=== PATIENT | male | born 1950 | race Caucasian/White ===

== ENCOUNTER → 2017-01-23 | Outpatient (CLI) | payer OTHER ==
[~2017-01-23] VITALS: Ht 170.2 cm; Wt 124.5 kg
[~2017-01-23] MED LIST: CZR50 PO; DIPH25TA23 PO
[2017-01-23 13:33] VITALS: BP 128/84; PULSE 74; Ht 170.2 cm; Wt 124.5 kg
== END | disposition home or self-care (01) ==
LOC: C.NEUR 13:16
PROVIDERS: ATTEND Physician Assistant Medical
DX: G47.33 Obstructive sleep apnea (adult) (pediatric) (principal); E66.01 Morbid (severe) obesity due to excess calories

== ENCOUNTER 2021-09-07 05:11 | Observation (INO) ==
--- NOTE | 2021-08-10 15:33 | PAT Medication Instructions ---
Medication Instructions Date of Service August 10, 2021 Home Medications Medication Instructions Recorded CPAP Machine #1 ea 10/20/20 cholecalciferol (vitamin D3) 50 mcg (2,000 unit) tablet (Vitamin D3) 50 mcg PO Q2D losartan 50 mg tablet (Cozaar) 50 mg PO QAM turmeric root extract 500 mg capsule (Curcuplex-95) 500 mg PO QAM vitamin B complex 1 tab PO Q2D STOP taking 2 weeks before surgery (or as soon as possible if surgery is within 2 weeks) turmeric root extract 500 mg capsule (Curcuplex-95) 500 mg PO QAM DO NOT take the morning of surgery cholecalciferol (vitamin D3) 50 mcg (2,000 unit) tablet (Vitamin D3) 50 mcg PO Q2D losartan 50 mg tablet (Cozaar) 50 mg PO QAM vitamin B complex 1 tab PO Q2D Other Notes If you have any questions please call us at [phone] or [phone] or [phone] or [phone]
--- NOTE | 2021-08-12 08:53 | Anesthesiology Consultation ---
Date of Service August 12, 2021 Assessment & Plan (1) Encounter for pre-operative examination: COVID screening: Per assessment on 08/12: No known COVID-19 positive contacts or current COVID-19 related symptoms. Travel screen negative. Patient vaccinated. Surgeon arranging preop COVID testing. Awaiting results. Chart Review Chart Review: Acceptable Risk for Surgery and Patient seen in Pre Admission Testing Teaching & Discussion Pre-Anesthesia Teaching/Discussion Notes: Instructed NPO after midnight before surgery,except medications with 15 cc of water. Medication instructions provided according to the PAT guidelines. History Surgery Operation Date: 09/07/21 10:10 Proposed Procedures p Right Total Knee Arthroplasty - Yossi Neumann MD Height/Weight Height: 5 ft 7 in Weight: 129 kg Allergies Allergy/AdvReac Type Severity Reaction Status Date / Time codeine AdvReac Intermediate Headache Unverified 08/10/21 12:14 Medications Home Medications Medication Instructions Recorded Confirmed Last Taken CPAP Machine #1 ea 10/20/20 Unknown cholecalciferol (vitamin D3) 50 50 mcg PO Q2D 08/10/21 08/10/21 Unknown mcg (2,000 unit) tablet (Vitamin D3) losartan 50 mg tablet (Cozaar) 50 mg PO QAM 08/10/21 08/10/21 Unknown turmeric root extract 500 mg 500 mg PO QAM 08/10/21 08/10/21 Unknown capsule (Curcuplex-95) vitamin B complex 1 tab PO Q2D 08/10/21 08/10/21 Unknown Past Medical History Medical History Gout Hx of gastroesophageal reflux (GERD) Controlled Hypertension IBS (irritable bowel syndrome) Morbid obesity Nocturnal hypoxemia Severe obstructive sleep apnea CPAP (only needed when laying flat per pt) Exercise / Class Metabolic Activity II 4-5 Yardwork/Stairs/Walk up hill Past Family History Family History Other No family history of adverse response to anesthesia Obstructive sleep apnea Past Surgical History Surgical History H/O removal of cyst "fatty tumor" from the back of the head History of colonoscopy History of esophagogastroduodenoscopy (EGD) S/P anal fissurectomy acute lateral sphincterotomy S/P tonsillectomy Past Anesthesia History No Hx of Anesthesia Complications and No Family Hx of Anesthesia Complications History of PONV No Hx of PONV and Hx of Motion Sickness (+ boats) Social History Smoking Status: Former smoker tobacco type: cigarettes Do You Dip or Chew Tobacco: No Smoking End Date: Quit 1975 Hx Alcohol Use: Yes alcohol intake frequency: holidays/special occasions only Hx Substance Use: No substance use type: does not use Review of Systems Chronic cough r/t allergies x several years, unchanged. Patient denies chest pain, shortness of breath, dyspnea on exertion, fever, chills, wheezing, palpitations. Physical Exam Vital Signs VITALS BP 133/81 P 68 TEMP 97.9 SP02 95%RA RESP 16 PHYSICAL Full cervical extension range of motion. Full TMJ range of motion. TMD 3 finger breaths Mallampati Score 3 Dentition: intact, several implants (left upper molar post- awaiting implant) Lungs: clear throughout to auscultation Cardiac: regular rate and rhythm, no murmurs noted Spine: normal Carotid arteries: negative bruit Extremities: no edema Short martinez Lab Results Anesthesia Preop Results Results Anesthesia Widget: WBC 6.03 K/uL (4.8-10.8) 08/12/21 Hgb 14.1 g/dL (14.0-18.0) 08/12/21 Hct 41.5 % (42-52) L 08/12/21 Plt 164 K/uL (130-400) 08/12/21 Na 136 mmol/L (136-145) 08/12/21 K 3.9 mmol/L (3.5-5.1) 08/12/21 Cl 104 mmol/L (98-107) 08/12/21 CO2 26 mmol/L (21-32) 08/12/21 BUN 14 mg/dl (6-23) 08/12/21 Creat 0.85 mg/dl (0.6-1.4) 08/12/21 Glucose Level 130 mg/dl (70-99(Fasting)) H 08/12/21 PT 11.0 Seconds (9.0-12.0) 08/12/21 PTT 26.6 Seconds (21.0-31.0) 08/12/21 INR 1.0 (0.9-1.1) 08/12/21 HA1c 6.8 % (4.5-5.6) H 08/12/21 Urine Color Yellow 08/12/21 Urine Appearance Clear (Clear) 08/12/21 Urine pH 5.0 (4.5-7.5) 08/12/21 Urine Specific [place] 1.018 (1.000-1.030) 08/12/21 Urine Protein Negative (Negative) 08/12/21 Urine Glucose (UA) Negative (Negative) 08/12/21 Urine Ketones Negative (Negative) 08/12/21 Urine Blood Negative (Negative) 08/12/21 Urine Nitrite Negative (Negative) 08/12/21 Urine Bilirubin Negative (Negative) 08/12/21 Urine Urobilinogen Negative (Negative) 08/12/21 Urine Leukocyte Esterase Negative (Negative) 08/12/21 Blood Type A Positive 08/12/21 Antibody Screen NEGATIVE 08/12/21 Testing Electrocardiogram Date: 08/12/21 Findings: + NSR @ (64) Chest X-Ray Date: 08/12/21 FINDINGS: PA and lateral chest radiographs are compared to study dated 06/16/2009. The heart is top normal for projection. There are scattered calcified granulomas. The lungs and pleural spaces are otherwise clear. There is no pneumothorax. The skeletal structures appear osteopenic. The bony thorax appears intact. Mild degenerative changes noted in the thoracic spine. IMPRESSION: No active disease in the chest.
--- NOTE | 2021-09-06 12:27 | History & Physical Report ---
Date of Service September 06, 2021 Assessment & Plan (1) Primary osteoarthritis of right knee: Plan: Treatment options discussed with the patient. He would like to proceed with surgical intervention. Risks, benefits and alternatives to surgery including but not limited to infection, DVT, pain, stiffness, need for revision surgery, damage to blood vessels, damage to nerves, PE, , were discussed with the patient and they wish to proceed. Plan for right total knee arthroplasty scheduled for [facility] on September [address] Neumann. We will plan on Xarelto postop for DVT prophylaxis. Plan on home health versus outpatient PT postop. All questions answered. Patient will follow-up postop. History of Present Illness Chief Complaint: Right knee pain Primary Care Provider: Pancho Christopher DO 71-year-old male with past medical history significant for hypertension, MARCELLUS, irritable bowel presents with ongoing right knee pain. Patient has failed conservative measures including injections of cortisone and hyaluronic acid, anti-inflammatories. Pain is interfering with daily activities. Patient would like to proceed with surgical intervention. Patient denies headaches, sweats, fevers, chills, double vision, blurred vision, cough, sore throat, dysphagia, chest pain, sob, wheezing, n/v/d/c, numbness, tingling, fatigue, urinary symptoms, mood disorders. ROS positive for right knee pain and stiffness. Allergies Allergy/AdvReac Type Severity Reaction Status Date / Time codeine AdvReac Intermediate Headache Unverified 08/10/21 12:14 Home Medications Medication Instructions Recorded Confirmed Type CPAP Machine #1 ea 10/20/20 Rx cholecalciferol (vitamin D3) 50 50 mcg PO Q2D 08/10/21 08/10/21 History mcg (2,000 unit) tablet (Vitamin D3) losartan 50 mg tablet (Cozaar) 50 mg PO QAM 08/10/21 08/10/21 History turmeric root extract 500 mg 500 mg PO QAM 08/10/21 08/10/21 History capsule (Curcuplex-95) vitamin B complex 1 tab PO Q2D 08/10/21 08/10/21 History Past Med/Surg History Medical History Gout Hx of gastroesophageal reflux (GERD) Controlled Hypertension IBS (irritable bowel syndrome) Morbid obesity Nocturnal hypoxemia Severe obstructive sleep apnea CPAP (only needed when laying flat per pt) Surgical History H/O removal of cyst "fatty tumor" from the back of the head History of colonoscopy History of esophagogastroduodenoscopy (EGD) S/P anal fissurectomy acute lateral sphincterotomy S/P tonsillectomy Family History Other No family history of adverse response to anesthesia Obstructive sleep apnea Social History Smoking Status: Former smoker Tobacco Type: Cigarettes Second Hand Exposure: No; Hx Alcohol Use: Yes Hx Substance Use: No Preferred Language: Trinidadian Communication Ability: Effective Marketing Services Rep Required: No Beliefs That Will Affect Care: None marital status: Current Living Situation: Spouse current occupational status: retired Feels Safe at Home: Yes Assistive Devices: Cane, CPAP and Glasses Review of Systems All systems reviewed & are unremarkable except as noted in HPI & below Physical Exam Constitutional: well developed and well nourished; no acute distress Eyes: PERRL, conjunctivae normal, anicteric sclerae ENMT: external ear and nose normal, oropharynx normal Neck: trachea midline, no thyromegaly Respiratory: normal respiratory effort, lungs clear to auscultation Cardiovascular: RRR, no murmur, no edema Musculoskeletal: Right knee: Varus alignment with mild effusion, tenderness medial joint line. Mild crepitation. Range of motion is 0 to 125 degrees. Stable to valgus and varus stress test. Skin: no rashes, warm and dry Neurologic: patellar DTR's 2+ bilat, sensation intact Psychiatric: A+Ox3, euthymic affect Results & Data ([facility]) Diagnostic Findings Right knee radiographs demonstrate tricompartmental degenerative changes with [id number] medial compartment. There is periarticular osteophyte formation.
[2021-09-07] MEDS ORDERED: ROPIVACAINE 0.5% HCL/PF 150 MG, BUPIVACAINE 0.75% MPF 20 ML, EPINEPHrine 30MG/30ML (OR ... INSTIL SCH (06:00)
[2021-09-07] MEDS ORDERED: METOCLOPRAMIDE HCL 10 MG TABLET PO SCH (06:00)
[2021-09-07] MEDS ORDERED: LR 500ML BOLUS, THEN 15ML/HR IV SCH (06:00)
[2021-09-07] MEDS ORDERED: TRANEXAMIC ACID 1,000 MG **IV Intra-op IV SCH (06:00)
[2021-09-07] MEDS ORDERED: CeleBREX 200 MG CAP PO SCH (06:00)
[2021-09-07] MEDS ORDERED: GABAPENTIN 300 MG CAP PO SCH (06:00)
[2021-09-07] MEDS ORDERED: ACETAMINOPHEN 500 MG TAB PO SCH (06:00)
[2021-09-07] MEDS ORDERED: dexAMETHasone 4 MG TAB PO SCH (06:00)
[2021-09-07] MEDS ORDERED: FAMOTIDINE 20 MG TAB PO SCH (06:00)
[2021-09-07] MEDS ORDERED: TRANEXAMIC ACID 1,000 MG **IV Pre-op IV SCH (06:00)
[2021-09-07] MEDS ORDERED: VANCOMYCIN HCL 2,000 MG in SODIUM CHLORIDE 0.9% 500 ML IV SCH (06:00)
[2021-09-07] MEDS ORDERED: ROPIVACAINE 0.5% 5 MG/ML 30 ML VIAL ONE (06:14)
[2021-09-07] MEDS ORDERED: EPINEPHrine INJ 1 MG/ML AMP ONE (06:14)
[2021-09-07] MEDS ORDERED: BUPIVACAINE 0.5 % 5 MG/1 ML PF 10ML VIAL ONE (06:14)
[2021-09-07] MEDS ORDERED: fentaNYL citrate 100 MCG/2 ML VIAL ONE (06:55)
[2021-09-07] MEDS ORDERED: MIDAZOLAM HCL 1 MG/ML 2ML VIAL ONE (06:55)
[2021-09-07] MEDS ORDERED: ORTHO JOINT ANESTHETIC ONE (07:01)
[2021-09-07] MEDS ORDERED: ePHEDrine sulfate 50 MG/ML AMP IV PRN (07:07)
[2021-09-07] MEDS ORDERED: fentaNYL citrate 100 MCG/2 ML VIAL IV PRN (07:07)
[2021-09-07] MEDS ORDERED: LABETALOL HCL IV 5 MG/ML 20ML IV PRN (07:07)
[2021-09-07] MEDS ORDERED: PHENYLEPHRINE 100MCG/ML 5ML SYR IV PRN (07:07)
[2021-09-07] MEDS ORDERED: ONDANSETRON INJ 2 MG/ML 2 ML VIAL IV PRN ×2 (07:07→12:00)
[2021-09-07] MEDS ORDERED: ATROPINE SULFATE 0.1 MG/ML 10ML SYR IV PRN (07:07)
[2021-09-07] MEDS ORDERED: HYDROmorphone INJ 1 MG/ML SYRINGE IV PRN (07:07)
--- NOTE | 2021-09-07 07:12 | History & Physical Bridge Note ---
Date of Service September 07, 2021 History & Physical Bridge Note I have examined the patient, reviewed the History & Physical and in the interval since the performance of the History & Physical I have noted the following changes of clinical significance: no changes noted
[2021-09-07] MEDS ORDERED: PROPOFOL IV EMULSION 10 MG/ML 20 ML VIAL IV ONE ×3 (08:12→09:55)
[2021-09-07] MEDS ORDERED: LIDOCAINE 2% 2 ML VIAL/AMP(20MG/ML) INFIL ONE (08:12)
[2021-09-07] MEDS ORDERED: ePHEDrine sulfate 50 MG/ML AMP ONE (09:55)
--- NOTE | 2021-09-07 10:37 | Post Operative Brief Note ---
Immediate Post Op Note v1 Date of Surgery September 07, 2021 Pre & Post Diagnosis Operation Date: 09/07/21 07:15 Pre-Op Diagnosis: Right Knee Osteoarthritis, morbid obesity BMI 44 Post-Op Diagnosis: Right Knee Osteoarthritis, morbid obesity BMI 44 I identified the patient and participated in the time-out.: Yes Procedure Operation Date: 09/07/21 07:15 Actual Procedures p Right Total Knee Arthroplasty(Right), lateral release, application superficial wound VAC, increased difficulty morbid obesity BMI 44.0- Yossi Neumann MD Surgeon Yossi Neumann MD Package Designer Tre MERA Estimated Blood Loss 20 Findings Consistent with Post-Op Diagnosis Specimens Bone cuts Drains Hemovac Drain Anesthesia Type MAC Spinal Regional Complications none Disposition Disposition: Recovery Room Overlapping Procedure I was immediately available: during the entire case.
--- NOTE | 2021-09-07 10:54 | Operative Report ---
Post Operative Report Pre & Post Diagnosis Operation Date: 09/07/21 07:15 Pre-Op Diagnosis: Right Knee Osteoarthritis, morbid obesity BMI 44 Post-Op Diagnosis: Right Knee Osteoarthritis, morbid obesity BMI 44 I identified the patient and participated in the time-out.: Yes Procedure Operation Date: 09/07/21 07:15 Actual Procedures p Right Total Knee Arthroplasty(Right), lateral release, application superficial wound VAC, increased difficulty more obesity BMI 44- Yossi Neumann MD Surgeon Yossi Neumann MD Finger Waver Tre MERA Estimated Blood Loss 20 Findings Consistent with Post-Op Diagnosis Specimens Bone cuts Drains 2 Hemovac Anesthesia Type MAC Spinal Regional Complications none Disposition Accompanied Patient To Recovery: No Disposition: Recovery Room Indications 71-year-old male with chronic right knee pain failed conservative management. X-rays demonstrate he has a varus knee with [id number] medial compartment [id number] in medial compartment with weightbearing films. Description of Procedure Patient was taken to the operating room placed supine on the operating table and anesthetized under spinal MAC regional block anesthesia. Exam under anesthesia demonstrated obese leg mainly upper thigh into the knee area with hips that tended to abduct causing both legs externally rotate and 0 through 120 degrees range of motion with no instability and a varus tibia. Patient had obesity in his abdominal area as well.. A pneumatic tourniquet was placed about the obese upper thigh of the right lower extremity. The right lower extremity was prepped and draped in usual sterile fashion. The leg was elevated exsanguinated with an Esmarch bandage and the pneumatic tourniquet was raised to 350 mm mercury. An anterior incision was made across the right knee. The skin was incised longitudinally subcutaneous flaps were elevated and an incision was made through the medial retinaculum extending up into the mid third of the quadriceps tendon and extended down to the medial tibial tubercle. Intra-articular findings demonstrated some tricompartmental osteoarthritic changes mainly medial compartment with [id number] medial compartment with some eburnation.. The knee was exposed by excising the infrapatellar fat pad, excising the medial and lateral meniscus and anterior cruciate ligament. Any inflamed synovial tissue was resected. The fat pad over the anterior femur was resected for placement of the component in that area. The lateral synovial bands were released. The femur was exposed. The custom femoral cutting block was pinned in position. It appeared that we were not going to make any bone cut across the lateral femoral condyle due to a hypoplastic lateral femoral condyle. My concern was that the cutting guide was not going to give us an appropriate cut so we abandon the femoral cutting guide and went to conventional instrumentation. Intramedullary drill hole was made into the femoral canal and a guide bret was placed and we set the distal femoral cutting guide at a standard cut and set the angle at 6 degree valgus cut to obtain more of a cut on the lateral femoral condyle so we will get support for the implant. The distal femoral cut was made with the oscillating saw. The femoral sizing guide was placed and pinned in position and the size 10 was appropriate sized as was predicted by the preoperative templating. Drill holes were made in 3 degrees of external rotation to match epicondylar axis. The size 10, 4-in-1 cutting block was placed. The anterior and posterior chamfer cuts were made. The knee was extended and a subperiosteal peel lateral release was performed around the patella. The patella width was measured and w idth was reproduced using freehand cut technique. The 35 millimeter symmetrical patella was used. 3 drill holes are made for the pegs. The tibia was exposed. A custom tibial cutting block was positioned and drill holes were made for the cutting guide. Cutting guide was placed and the proximal cut was made with the oscillating saw. All osteophytes were resected. The lamina zoology teacher was used to assess ligamentous balance and the ligaments were balanced in extension and flexion. The tibia was reexposed and measured for a size G tibial component. This was externally rotated in line with the tibial tubercle and the fixation pins were drilled. The proximal tibia was fashioned with the drill and punch. The size 10 right CR femoral trial was inserted. The trial MC inserts were used. The 10 mm insert gave balanced ligaments through full range of motion. The patella tracked with some slight lateral patellar tilt so I did a formal lateral release leaving the synovium intact and patella tracked centrally. the trials were removed. The orthomix anesthetic cocktail was injected per protocol. The knee was then copiously irrigated with pulsatile lavage saline solution. The final components were cemented with Refobacin bone cement. The final components were persona 10 standard CR right femoral component, G tibial component, 10mm MC right polyethylene and a 35 symmetrical patella. After the cement cured with the knee in full extension the Betadine soak was used per protocol. The knee joint was copiously irrigated with pulsatile lavage saline solution . 2 drains were brought out laterally and connected to a Hemovac. The quadriceps tendon and medial retinaculum were closed with interrupted [id number] #1 Vicryl sutures. The knee was taken through a full range of m otion and repair was secure. The subcutaneous tissues were closed with 2-0 Vicryl sutures and skin was closed with neela. Patrick and Acticoat superficial wound VAC was applied and the patient tolerated the procedure well. Was increased difficulty with exposure during the procedure related to morbid obesity as well as increased difficulty positioning and applying the tourniquet which added 30 minutes of the procedure time. Tre MERA my physician operating room assistant, participated as advertising sales assistant and was integral part in all aspects of the procedure. He assisted in soft tissue retraction, instrument management ,leg positioning, the closure, application superficial wound VAC and will participate in the postoperative care of the patient. I attest to the content of the Intraoperative Record and any orders documented therein. Any exceptions are noted below.
--- NOTE | 2021-09-07 11:45 | XRay Report ---
TWO VIEWS RIGHT KNEE CLINICAL HISTORY: Postoperative examination. FINDINGS: AP and crosstable lateral portable views of the right knee are obtained. A right knee arthr oplasty is in near anatomic alignment. There has been undersurface remodeling of the patella. No acut e fracture is seen. There are expected postoperative changes around the knee including skin clips, a surgical drain, soft tissue edema, and subcutaneous gas. IMPRESSION: Expected postoperative changes status post right knee arthroplasty. No acute fracture is seen. ACT 112: Negative or not required by law. Electronically signed by: Uche Calabrese M.D. 09/07/2021 11:43 AM
--- NOTE | 2021-09-07 11:55 | Anesthesiology Progress Note ---
Date of Service September 07, 2021 Anesthesia Post Procedure Vital Signs Vital Signs: Temp Pulse Pulse Resp BP Pulse Ox O2 Del Method 09/07/21 11:45 36.9 C 85 12 112/69 94 Nasal Cannula 09/07/21 11:30 82 12 105/55 L 97 Nasal Cannula 09/07/21 11:20 36.6 C 80 12 119/64 94 Nasal Cannula 09/07/21 11:10 86 15 127/70 94 Oxymask 09/07/21 11:00 84 18 127/64 95 Oxymask 09/07/21 10:50 84 17 126/67 95 Oxymask 09/07/21 10:42 37.0 C 91 H 15 123/66 95 Oxymask 09/07/21 05:52 36.7 C 73 20 155/86 H 98 Room Air O2 Flow Rate 09/07/21 11:45 2.5 09/07/21 11:30 2.5 09/07/21 11:20 2.5 09/07/21 11:10 2 09/07/21 11:00 4 09/07/21 10:50 6 09/07/21 10:42 8 09/07/21 05:52 Pain Intensity Right Knee: Pain Intensity: 4 Transfer of Care Handoff Completed per policy Notes Mental Status: alert / awake / arousable Patient Amnestic to Procedure: Yes Nausea / Vomiting: adequately controlled Pain: adequately controlled Airway Patency, RR, SpO2: stable & adequate BP & HR: stable & adequate Hydration State: stable & adequate Neuraxial Anesthesia: was administered and sensory block is resolving Anesthetic Complications: no major complications apparent and Pt Satisfied with anesthetic care
[2021-09-07] MEDS ORDERED: CHOLECALCIFEROL 1,000 UNITS 25 MCG TAB PO SCH (12:00)
[2021-09-07] MEDS ORDERED: HYDROmorphone INJ 0.5 MG/0.5 ML SYR IV PRN (12:00)
[2021-09-07] MEDS ORDERED: METOCLOPRAMIDE HCL INJ 5 MG/ML 2 ML VIAL IV PRN (12:00)
[2021-09-07] MEDS ORDERED: TAMSULOSIN HCL 0.4 MG CAP PO PRN (12:00)
[2021-09-07] MEDS ORDERED: bisacodyL 10 MG SUPP PR PRN (12:00)
[2021-09-07] MEDS ORDERED: oxyCODONE HCL IR 5 MG TAB (IMMEDIATE RELEASE) PO PRN (12:00)
[2021-09-07] MEDS ORDERED: NALOXONE HCL 0.4 MG/1 ML VIAL/CARP IV PRN (12:00)
[2021-09-07] MEDS ORDERED: MAGNESIUM HYDROXIDE SUSP 30 ML UDC PO PRN (12:00)
[2021-09-07] MEDS: SODIUM CHLORIDE 0.9% 1000ML 1,000 ML IV SCH ×2 (12:25→21:16)
[2021-09-07] MEDS ORDERED: VITAMIN B COMPLEX TAB PO SCH (12:30)
--- NOTE | 2021-09-07 12:59 | Consultation ---
Date of Consultation September 07, 2021 Assessment & Plan (1) Status post total knee replacement, right: Post op day# 0 S/P Right TKA by Dr Neumann EBL#20ml -pain management per ortho -wound management per ortho -PT/OT as appropriate -DVT prophylaxis per ortho -incentive spirometry -monitor H&H for acute blood loss anemia; pre-op Hgb: 14 (2) Hypertension: Stable -Continue losartan (3) Severe obstructive sleep apnea: -CPAP HS (4) Obesity: BMI: 44 -Lifestyle modifications recommended DVT Prophylaxis -SCDs Disposition per primary service Follows with Dr Morris for routine care Pt was seen and care coordinated with Dr Engel. See addendum Thank you for this consultation. We will follow the patient with you during their hospital stay. You can reach a member of the [facility] Hospitalist Team 18/09 via [facility] Supervising Physician Co-Signing Physician Notes Patient was seen and examined independently at bedside. Chart reviewed. Case discussed with Marbella TRUONG and agree with the documentation above. In summary, this is a 71 year old male with morbid obesity with right knee OA who underwent right TKA today. Hospitalist service was consulted for post op medical management. Family at bedside. Denies any pain. Tolerated diet without issues. Passed gas. Has not voided yet. No chest pain or shortness of breath, no N/V. Brought CPAP from home. Vitals stable, AAOx3, chest clear, heart sounds normal, abd benign, right knee covered with dressing, icepack and with hemovac suction in place. TKA management per surgical team. Resume losartan likely from tomorrow if BP stable. Continue CPAP hs. Check labs in am. Rest per note above. History of Present Illness Requesting Physician: Dr Neumann Reason for Consultation: Post op medical management Attending Physician: Yossi Neumann MD History of Present Illness Patient is 71 y/o M with PMH HTN, GERD, MARCELLUS, obesity seen in medical consultation s/p right TKA today by Dr Neumann. Post op patient reports no pain currently. Right lower extremity still with numbness. Ate lunch without difficulty. Denies nausea or vomiting. Last BM yesterday. Had mild diff use TORRES post op that has resolved since he drank cup of coffee. Denies fever/chills, diaphoresis, dizziness, syncope, vision changes, neck pain, CP, SOB, orthopnea, palpitations, cough, sore throat, choking, otalgia, rhinorrhea, abdominal pain, weakness, extremity edema, rashes, urinary symptoms. Allergies Allergy/AdvReac Type Severity Reaction Status Date / Time codeine AdvReac Intermediate Headache Verified 09/07/21 05:46 Home Medications Medication Instructions Recorded Confirmed Type CPAP Machine #1 ea 10/20/20 Rx cholecalciferol (vitamin D3) 50 50 mcg PO Q2D 08/10/21 09/07/21 History mcg (2,000 unit) tablet (Vitamin D3) losartan 50 mg tablet (Cozaar) 50 mg PO QAM 08/10/21 09/07/21 History turmeric root extract 500 mg 500 mg PO QAM 08/10/21 09/07/21 History capsule (Curcuplex-95) vitamin B complex 1 tab PO Q2D 08/10/21 09/07/21 History Patient History Medical History Gout Hx of gastroesophageal reflux (GERD) Controlled Hypertension IBS (irritable bowel syndrome) Morbid obesity Nocturnal hypoxemia Severe obstructive sleep apnea CPAP (only needed when laying flat per pt) Surgical History (Updated 09/07/21 @ 13:28 by Marbella Donald PA-C) H/O removal of cyst "fatty tumor" from the back of the head History of colonoscopy History of esophagogastroduodenoscopy (EGD) S/P anal fissurectomy acute lateral sphincterotomy S/P tonsillectomy Status post total knee replacement, right 09/07/21. Dr Neumann Family History Other No family history of adverse response to anesthesia Obstructive sleep apnea Social History Smoking Status: Former smoker Tobacco Type: Cigarettes Smoking End Date: Quit 1975; Second Hand Exposure: No; Do You Dip or Chew Tobacco: No; Tobacco Cessation Education Requested by Patient: No Hx Alcohol Use: Yes Hx Substance Use: No Preferred Language: Monegasque Communication Ability: Effective Campus Recruiting Coordinator Required: No Beliefs That Will Affect Care: None marital status: Current Living Situation: Spouse current occupational status: retired Other Information That Helps Us Care for You: No Feels Safe at Home: Yes Safety Concerns: Feels Safe At This Time Assistive Devices: Cane, CPAP and Glasses Assistive Devices Comment: cane for stairs & dental implants x3 (right upper, left upper & left lower) Review of Systems Review of Systems: All systems reviewed & are unremarkable except as noted in HPI & below Physical Exam Physical Exam: General: no distress, obese Head: normocephalic, atraumatic Eyes: conjunctiva non-injected, anicteric ENT: normal inspection external ears, nose, mucous membranes moist Neck: supple, trachea midline Lungs: clear, no respiratory distress, no wheezing/rhonchi/rales CV: RRR, no murmur, no pretibial edema Abd: protuberant, normal BS, soft, non-tender Ext: no cyanosis, no calf tenderness; RLE, +LAKE wrap, surgical dressing in place and is dry. +hemovac in place with small amount serosanguineous drainage Neuro: A&O x 3, no focal deficits noted, normal affect Skin: warm, dry Results & Data ([facility]) Vital Signs (Past 12 Hours) Vital Signs Temp Pulse Pulse Resp BP Pulse Ox O2 Del Method 09/07/21 12:17 36.4 C L 88 17 104/61 97 Room Air 09/07/21 11:45 36.9 C 85 12 112/69 94 Nasal Cannula 09/07/21 11:30 82 12 105/55 L 97 Nasal Cannula 09/07/21 11:20 36.6 C 80 12 119/64 94 Nasal Cannula 09/07/21 11:10 86 15 127/70 94 Oxymask 09/07/21 11:00 84 18 127/64 95 Oxymask 09/07/21 10:50 84 17 126/67 95 Oxymask 09/07/21 10:42 37.0 C 91 H 15 123/66 95 Oxymask 09/07/21 05:52 36.7 C 73 20 155/86 H 98 Room Air O2 Flow Rate 09/07/21 12:17 2 09/07/21 11:45 2.5 09/07/21 11:30 2.5 09/07/21 11:20 2.5 09/07/21 11:10 2 09/07/21 11:00 4 09/07/21 10:50 6 09/07/21 10:42 8 09/07/21 05:52
[2021-09-07] MEDS: ACETAMINOPHEN 500 MG TAB PO SCH ×2 (14:13→21:13)
[2021-09-07] MEDS: ceFAZolin 2000MG 2,000 MG/15 ML SYR IV SCH (16:43)
[2021-09-07] MEDS ORDERED: SENNA 8.6 MG TAB PO SCH (21:00)
[2021-09-07] MEDS: DOCUSATE SODIUM 100 MG CAP PO SCH (21:13)
[2021-09-08] MEDS: ceFAZolin 2000MG 2,000 MG/15 ML SYR IV SCH (00:42)
[2021-09-08] MEDS: ACETAMINOPHEN 500 MG TAB PO SCH ×2 (05:37→13:48)
[2021-09-08 07:10] LABS: Hematocrit (blood only) 35.7 % (40.1-51.0); Hemoglobin 12.2 g/dl (14.0-18.0); Mean Corpuscular Hemoglobin 30.7 pg (25.0-34.0); Mean Corpuscular Hgb Conc 34.2 g/dL (32.0-36.0); Mean Corpuscular Volume 89.9 fL (80.0-100.0); Mean Platelet Volume 10.5 fL (9.4-12.4); Platelet Count 161 K/uL (130-400); RDW Coefficient of Variation 12.9 % (11.5-14.5); RDW Standard Deviation 42.4 fL (36.4-46.3); Red Blood Count 3.97 M/uL (4.63-6.08); White Blood Count 13.03 K/ul (4.8-10.8)
[2021-09-08 07:52] LABS: BUN Creatinine Ratio 17.3 (10-20); Calcium 8.4 mg/dl (8.5-10.1); Creatinine Clr Calc Pharmacy 119.1 ml/min; Est GFR (African American) 108.5 ml/min; Est GFR (Non-African American) 93.6 ml/min; Potassium 4.2 mmol/L (3.5-5.1)
[2021-09-08] MEDS ORDERED: LOSARTAN POTASSIUM 50 MG TAB PO SCH (09:00)
[2021-09-08] MEDS ORDERED: RIVAROXABAN 10 MG TABLET PO SCH (09:00)
[2021-09-08] MEDS ORDERED: MULTIVITAMIN TAB PO SCH (09:00)
--- NOTE | 2021-09-08 09:03 | Hospitalist Progress Note ---
Date of Service September 08, 2021 Assessment & Plan (1) Status post total knee replacement, right: Plan: Post op day# 1 S/P Right TKA by Dr Neumann Per ortho for pain control, wound care, anticoagulation and activities Monitor H&H (EBL 20ml, hgb 12.2 from pre-op 14.1). Continue incentive spirometry, PT/OT when appropriate (2) Hypertension: Plan: Stable. Continue losartan (3) Severe obstructive sleep apnea: Plan: CPAP HS (4) Obesity: Plan: BMI: 44 Lifestyle modifications recommended DVT Prophylaxis SCDs Disposition per primary service Follows with Dr Morris for routine care Thank you for this consultation. We will follow the patient with you during their hospital stay. You can reach a member of the [facility] Hospitalist Team 18/09 via [employer] Admission and Anticipated Discharge Date Admission Date: September 07, 2021 Supervising Physician Co-Signing Physician Notes Patient was seen and evaluated independently. Chart was reviewed. He is medically stable for discharge, can resume home medications including Xarelto if no contraindcations with his recent surgery. Subjective Seen and examined in 310-1. Feeling well today with some surgical site discomfort of R knee. Able to participate with therapy without issue. Discharge planned for today. Tolerating diet without issue. No dysuria or difficulty urinating. Had bowel movement this morning. Review of Systems Review of Systems: At least ten systems reviewed and negative except as noted in the HPI. Physical Exam Physical Exam: Gen: WD/WN, NAD, sitting in bed, A&Ox3 HEENT: Normocephalic, atraumatic, conjunctivae moist, sclerae anicteric, mucous membranes moist Lung: Clear to Auscultation bilaterally, no wheezes/rales/rhonchi Heart: Regular rate, regular rhythm, no murmurs, rubs, or gallops Abdomen: Soft, NT, ND +BS x 4 Extremities: R knee with surgical dressing c/d/i. Drain visualized. No edema Skin: Warm, no rash Results & Data Results & Data ([place]) Vital Signs (Past 12 Hours) Vital Signs Temp Pulse Resp BP Pulse Ox O2 Del Method 09/08/21 05:39 36.5 C 65 16 123/76 98 CPAP 09/08/21 03:18 36.5 C 66 16 128/67 98 CPAP 09/07/21 22:13 36.8 C 76 16 131/73 98 Room Air Laboratory Results Short CBC 09/08/21 Range/Units 06:41 WBC 13.03 H (4.8-10.8) K/ul Hgb 12.2 L (14.0-18.0) g/dl Hct 35.7 L (40.1-51.0) % Plt Count 161 (130-400) K/uL BMP 09/08/21 06:41 Sodium 137 Potassium 4.2 Chloride 109 H Carbon Dioxide 21 BUN 13 Creatinine 0.75 Glucose 124 H Calcium 8.4 L Diagnostic Findings Knee X-Ray 09/07/21 10:46 TWO VIEWS RIGHT KNEE CLINICAL HISTORY: Postoperative examination. FINDINGS: AP and crosstable lateral portable views of the right knee are obtained. A right knee arthroplasty is in near anatomic alignment. There has been undersurface remodeling of the patella. No acute fracture is seen. There are expected postoperative changes around the knee including skin clips, a surgical drain, soft tissue edema, and subcutaneous gas. IMPRESSION: Expected postoperative changes status post right knee arthroplasty. No acute fracture is seen. ACT 112: Negative or not required by law. Electronically signed by: Uche Calabrese M.D. 09/07/2021 11:43 AM
[2021-09-08] MEDS: DOCUSATE SODIUM 100 MG CAP PO SCH (09:05)
--- NOTE | 2021-09-08 09:42 | Orthopedic Progress Note ---
Date of Service September 08, 2021 Assessment & Plan (1) Status post total knee replacement, right: Plan: Postop day #1 right total knee -PT/OT -Pain management as written -DVT prophylaxis: SCDs, teds, Xarelto 10 mg daily -A.m. labs: Mild leukocytosis likely due to surgical stress. Patient is asymptomatic hemoglobin dropped from 14.1-12.2 this morning, likely due to surgical loss versus dilutional -Discharge planning plan on outpatient therapy. Plan on discharge home today after PT if goes well. Admission and Anticipated Discharge Date Admission Date: September 07, 2021 Subjective Patient is postop day 1 right total knee. He is doing well this morning, pain well controlled. Block is worn off. No other complaints. Denies chest pain, shortness of breath, headache/dizziness, nausea/vomiting/. Review of Systems Review of Systems: All systems reviewed & are unremarkable except as noted in Subjective Physical Exam Physical Exam: Right knee: Dressing is clean, dry, intact. Patrick in place. Hemovac on suction. Toes are mobile with good dorsi flexion, mild weakness due to the block but improving. No calf tenderness. Distally neurovascular status and sensation intact. Constitutional: WD/WN, vitals as above Results & Data ([facility]) Vital Signs (Past 12 Hours) Vital Signs Temp Pulse Resp BP Pulse Ox O2 Del Method 09/08/21 05:39 36.5 C 65 16 123/76 98 CPAP 09/08/21 03:18 36.5 C 66 16 128/67 98 CPAP 09/07/21 22:13 36.8 C 76 16 131/73 98 Room Air 09/07/21 20:09 36.5 C 75 16 114/68 97 Room Air Laboratory Results H & H 09/08/21 Range/Units 06:41 Hgb 12.2 L (14.0-18.0) g/dl Hct 35.7 L (40.1-51.0) %
--- NOTE | 2021-09-08 14:51 | Discharge Summary ---
Date of Service September 08, 2021 Admission HPI Per Admitting Provider 71-year-old male with past medical history significant for hypertension, MARCELLUS, irritable bowel presents with ongoing right knee pain. Patient has failed conservative measures including injections of cortisone and hyaluronic acid, anti-inflammatories. Pain is interfering with daily activities. Patient would like to proceed with surgical intervention. Patient denies headaches, sweats, fevers, chills, double vision, blurred vision, cough, sore throat, dysphagia, chest pain, sob, wheezing, n/v/d/c, numbness, tingling, fatigue, urinary symptoms, mood disorders. ROS positive for right knee pain and stiffness. Admission Exam Per Admitting Provider Constitutional: well developed and well nourished; no acute distress Eyes: PERRL, conjunctivae normal, anicteric sclerae ENMT: external ear and nose normal, oropharynx normal Neck: trachea midline, no thyromegaly Respiratory: normal respiratory effort, lungs clear to auscultation Cardiovascular: RRR, no murmur, no edema Musculoskeletal: Right knee: Varus alignment with mild effusion, tenderness medial joint line. Mild crepitation. Range of motion is 0 to 125 degrees. Stable to valgus and varus stress test. Skin: no rashes, warm and dry Neurologic: patellar DTR's 2+ bilat, sensation intact Psychiatric: A+Ox3, euthymic affect Principal Diagnosis Right knee osteoarthritis Discharge Exam Right knee: Dressing is clean, dry, intact. Patrick in place. Hemovac on suction. Toes are mobile with good dorsi flexion, mild weakness due to the block but improving. No calf tenderness. Distally neurovascular status and sensation intact. Constitutional WD/WN, vitals as above Discharge Data Allergies Allergy/AdvReac Type Severity Reaction Status Date / Time codeine AdvReac Intermediate Headache Verified 09/07/21 05:46 Consultations 09/05/21 13:17 Consult Hospitalist Routine Procedures Performed Operation Date: 09/07/21 07:15 Actual Procedures p Right Total Knee Arthroplasty(Right) - Yossi Neumann MD Ordered Studies 09/07/21 05:00 US - OR guided needle placemen Routine Hospital Course (1) Status post total knee replacement, right: Postop day #1 right total knee -PT/OT -Pain management as written -DVT prophylaxis: SCDs, teds, Xarelto 10 mg daily -A.m. labs: Mild leukocytosis likely due to surgical stress. Patient is asymptomatic hemoglobin dropped from 14.1-12.2 this morning, likely due to surgical loss versus dilutional -Discharge planning plan on outpatient therapy. Plan on discharge home today after PT if goes well. Lab Results 09/07/21 09/08/21 09/08/21 Range/Units 05:25 06:41 06:41 WBC 13.03 H (4.8-10.8) K/ul RBC 3.97 L (4.63-6.08) M/uL Hgb 12.2 L (14.0-18.0) g/dl Hct 35.7 L (40.1-51.0) % MCV 89.9 (80.0-100.0) fL MCH 30.7 (25.0-34.0) pg MCHC 34.2 (32.0-36.0) g/dL RDW Std Deviation 42.4 (36.4-46.3) fL RDW Coeff of Chandan 12.9 (11.5-14.5) % Plt Count 161 (130-400) K/uL MPV 10.5 (9.4-12.4) fL Sodium 137 (136-145) mmol/L Potassium 4.2 (3.5-5.1) mmol/L Chloride 109 H (98-107) mmol/L Carbon Dioxide 21 (21-32) mmol/L Anion Gap 7 (3-11) BUN 13 (6-23) mg/dl Creatinine 0.75 (0.6-1.4) mg/dl Est Cr Clr Drug Dosing 119.1 ml/min Est GFR ( Amer) 108.5 ml/min Est GFR (Non-Af Amer) 93.6 ml/min BUN/Creatinine Ratio 17.3 (10-20) Glucose 124 H (70-99(Fasting)) mg/dl Calcium 8.4 L (8.5-10.1) mg/dl SARS-CoV-2, RNA, NAAT NEGATIVE (NEGATIVE) Total Time Total Time Spent Total Time Spent (In Minutes): 20 Discharge Plan Discharge Items Patient Disposition: Home - Self-Care Reason For Visit: Right Knee Osteoarthritis Discharge Diagnosis: Right knee osteoarthritis Activity: Per Instructions section Non-emergency contact: Surgeon Call non-emergency contact if: you have any medication questions, your pain is not controlled, your pain is concerning for you, you have a fever, your temperature is above 101, your wound has increased redness and your wound has increased drainage Follow-up/Referrals: Sohail Morris MD [Primary Care Provider] - Diet: Regular Addtl Attending Provider Instructions: ACTIVITY RECOMMENDATIONS: SELF CARE INSTRUCTIONS AFTER TOTAL KNEE REPLACEMENT A. You may need to continue a physical therapy program after discharge from the hospital. There are several options available to you. Your doctor will assist you in selecting the best one for you. 1. An out-patient facility 2 to 3 times a week for therapy or home therapy. 2. Continue working on all exercises taught to you in the hospital. Your goals should be to increase bending of your knee to 90 degrees and beyond and to fully straighten your knee. B. You may progress at your own pace from walking with a walker or crutches to a cane; then to no assistive devices. C. Make walking a part of your daily routine. Be up as much as comfortable with rest periods throughout the day. Rest with leg elevation is very important. Use the ice wrap frequently for the first 3-4 weeks. D. There are no restrictions on activities. You may ride in a car, shop, participate in manager field investigations and all social activities. E. Wear the long elastic stockings (ROLAN hose) 20 hours a day for 2 weeks after surgery. They can be removed several times a day for laundering and for a bath. F. You may shower, no tub baths until cleared by your doctor. SPECIAL CARE INSTRUCTIONS: VERY IMPORTANT TO READ AND REVIEW A. There are a few signs you need to watch for after you are home. Call [facility] if you notice any of the followin. Increased severe knee pain. Some pain is expected especially when you exercise. 2. Increased swelling in your leg or knee; pain or swelling of the calf muscle in either lower leg. 3. Any fluid drainage from the incision. 4. Shortness of breath or chest pain. B. Please call [facility] at if you have any concerns or questions about your operation or recovery. The doctor or his nurse will return your call promptly. C. You must take antibiotics before dental work, bladder, bowel or other surgery. Your doctor will provide you with a permanent care to carry describing this precaution. IMPORTANT: * REMEMBER TO TAKE ASPIRIN, 81 MG, TWICE DAILY FOR 4 WEEKS UNLESS OTHERWISE DIRECTED. THIS IS YOUR BLOOD THINNER. * HIGH RISK PATIENTS MAY BE PRESCRIBED A STRONGER BLOOD THINNER. THIS WILL BE PROVIDED AT DISCHARGE. * CALL IF INCREASED PAIN, REDNESS, DRAINAGE OR FEVER GREATER THAT 101. * WEAR ROLAN HOSE 20 HOURS PER DAY FOR 2 WEEKS. This is a large suction dressing covering your incision. This will help pull any excess drainage from the wound and allow your incision to heal properly. You may shower with this if you can keep the unit outside of the shower. If any bleeding or leakage is noted please call your doctor's office. This will remain on your incision for 7 days and then should be removed. This can be done yourself or by the home nursing staff if applicable. The entire unit is disposable once removed. Once removed, keep incision clean and dry. If redness or drainage is noted, please call your surgeon. IF INCISION IS LEAKING THROUGH DRESSING, CALL THE OFFICE . FOLLOW UP VISIT: If appointment is not already scheduled: Please call [facility] to make a follow-up appointment for 2 weeks after your surgery at . Stand-Alone Forms: My [facility] [employer], Opioid Pain Management, Smoking Cessation Medications and DC Order Prescriptions: New Xarelto 10 mg Tablet 10 mg PO DAILY Qty: 30 0RF acetaminophen [Tylenol Extra Strength] 500 mg Tablet 1,000 mg PO Q8 Qty: 60 0RF oxycodone 5 mg Tablet 5 - 10 mg PO .Q4h-6h MDD 6 PRN (Reason: pain) Qty: 30 0RF Rx Instructions: Ongoing therapy, Dr. Neumann supervising Continued (DME) CPAP Machine Misc See Rx Instructions .MEDSUPPLY Qty: 1 0RF Rx Instructions: CPAP 12 cm water pressure, C flex setting #2 with heated humidification, t ubing, and supplies. HEIDI: 99+ years. losartan [Cozaar] 50 mg Tablet 50 mg PO QAM vitamin B complex Tablet 1 tab PO Q2D cholecalciferol (vitamin D3) [Vitamin D3] 50 mcg (2,000 unit) Tablet 50 mcg PO Q2D Discontinued turmeric root extract [Curcuplex-95] 500 mg Capsule 500 mg PO QAM Discharge Orders: Discharge Order (Routine); Ordered 09/08/21 Ordered By: Chris Shea/Other Patient Handouts: DVT Post Op Prevention Admission Data Admit Date/Time: 09/07/21 10:46 Attending Provider: Yossi Neumann Admit Provider: Yossi Neumann Primary Care Provider: Sohail Morris Other Providers: Kiesha Felix ; Gloria Ovalle Other Interventions: Discharge Summary Assessment (RN) Last Done: 09/08/21 12:57
== END 2021-09-08 15:00 | disposition home or self-care (01) ==
LOC: 3E 05:11 → ASU 05:11